=== PATIENT | female | born 1985 | race Caucasian/White ===

== ENCOUNTER → 2016-07-14 | Outpatient (CLI) | payer OTHER ==
[~2016-07-14] MED LIST: HYDR-757 PO; KETO10TA PO; LEVO500T2 PO; PHEN-640 PO; TAMS0.4C98 PO
--- OUTSIDE RECORDS SUMMARY | 2016-07-14 15:42 | XMS REPORT | Continuity of Care Document ---
Author Author [facility] Organization [facility] Address Unknown Phone Unavailable Allergies Medications Problems Date Dx Coded Attending Type Code Diagnosis Diagnosed By 07/14/2016 JOSLYN SUNSHINE Ot 610.0 SOLITARY CYST OF BREAST 07/14/2016 JOSLYN SUNSHINE Ot 610.0 SOLITARY CYST OF BREAST Procedures Results Encounters ACCT No. Visit Date/Time Discharge Status Pt. Type Provider Facility Loc./Unit Complaint [id number] 12/25/2013 07:37:00 2013 23:59:59 CLS Outpatient JOSLYN SUNSHINE [facility] RAD LEFT BREAST LUMP [id number] 10/12/2012 10:13:00 2012 23:59:59 CLS Outpatient [id number] 07/14/2016 15:39:00 ACT Outpatient CARI KELLY, ELVIA Coleman [facility] RAD ABD PAIN,BACK PAIN
--- NOTE | 2016-07-14 16:09 | Diagnostic Imaging Report ---
PROCEDURE: CT urinary tract, rule out kidney stone. TECHNIQUE: Multiple contiguous axial images were obtained through the abdomen and pelvis without the use of intravenous contrast. INDICATION: Bilateral lower back pain with hematuria. COMPARISON: There are no prior studies available for comparison. FINDINGS: Image 142/169 through the low pelvis does show a small 2 x 4 mm calculus at the uterovesical junction on the left. The left ureter proximal to the calculus is slightly dilated as is the left renal pelvis. Consequently, I do suspect that there is partial obstruction of the left collecting system due to the aforementioned calculus. There is no sign of nephrolithiasis, and the right kidney is not obstructed. The urinary bladder is only partially filled and consequently difficult to assess. There is no obvious bladder abnormality evident. There is a kokmk-pm-rvzasuyz amount of free fluid within the pelvis. This is nonspecific. There is no solid pelvic mass or abscess visualized. The uterus is unremarkable. The appendix was visualized and is not abnormally thickened. There is no distortion of the periappendiceal fat to suggest acute appendicitis. The liver, spleen, pancreas, adrenals, gallbladder, aorta, and inferior vena cava are unremarkable for an acute abnormality. The stomach is partially filled with fluid and consequently difficult to assess. The lung bases are clear. The bone windows show no evidence for a fracture or for a destructive lesion. IMPRESSION: 1. There is partial obstruction of the left collecting system due to a 2 x 4 mm calculus at the ureterovesical junction. 2. There is a moderate amount of free fluid in the pelvis. This finding is nonspecific. 3. There is no acute abnormality of the abdomen or pelvis noted otherwise. 4. These results will be called to Dr. Neal Marin. Dictated by: Dictated on workstation # [id number]
== END ==
LOC: RAD 15:39
PROVIDERS: ATTEND Internal Medicine
DX: N20.1 Calculus of ureter (principal)
CPT/HCPCS: 74176

== ENCOUNTER → 2016-07-16 | Outpatient (CLI) | payer OTHER ==
--- OUTSIDE RECORDS SUMMARY | 2016-07-16 12:28 | XMS REPORT | Continuity of Care Document ---
Author Author [facility] Organization [facility] Address Unknown Phone Unavailable Allergies Medications Problems Date Dx Coded Attending Type Code Diagnosis Diagnosed By 07/14/2016 JOSLYN SUNSHINE Ot 610.0 SOLITARY CYST OF BREAST 07/14/2016 JOSLYN SUNSHINE Ot 610.0 SOLITARY CYST OF BREAST Procedures Results Encounters ACCT No. Visit Date/Time Discharge Status Pt. Type Provider Facility Loc./Unit Complaint [id number] 12/25/2013 07:37:00 2013 23:59:59 CLS Outpatient JOSLYN SUNSHINE [facility] RAD LEFT BREAST LUMP [id number] 10/12/2012 10:13:00 2012 23:59:59 CLS Outpatient [id number] 07/14/2016 15:39:00 ACT Outpatient CARI KELLY, ELVIA Coleman [facility] RAD ABD PAIN,BACK PAIN
--- NOTE | 2016-07-16 17:13 | Diagnostic Imaging Report ---
EXAMINATION: Abdomen at 12:49 p.m. INDICATION: Hematuria. FINDINGS: The previous CT abdomen/pelvis exam performed on 07/14/2016 noted a 2 x 4 mm calculus at the ureterovesical junction on the left. That calculus is again evident and does not appear to have changed significantly in position. There is no other pathological calcification evident. There is no mass or organomegaly noted. There is gas in both the large and small bowel in a nonspecific fashion. There is no sign of a bowel obstruction. The osseous structures are intact. IMPRESSION: 1. The obstructive calculus in the distal left ureter seen on the recent CT abdomen/pelvis exam is again visualized. The calculus still appears to be at the ureterovesical junction on the left. 2. There is no acute abnormality of the abdomen or pelvis. Dictated by: Dictated on workstation # [id number]
== END ==
LOC: RAD 12:24
PROVIDERS: ATTEND Urology
DX: N20.1 Calculus of ureter (principal)
CPT/HCPCS: 74000

== ENCOUNTER 2016-07-17 10:30 | Outpatient (CLI) | payer OTHER ==
--- OUTSIDE RECORDS SUMMARY | 2016-07-16 14:57 | XMS REPORT | Continuity of Care Document ---
Author Author [facility] Organization [facility] Address Unknown Phone Unavailable Allergies Medications Problems Date Dx Coded Attending Type Code Diagnosis Diagnosed By 07/14/2016 JOSLYN SUNSHINE Ot 610.0 SOLITARY CYST OF BREAST 07/14/2016 JOSLYN SUNSHINE Ot 610.0 SOLITARY CYST OF BREAST 07/16/2016 JOSLYN SUNSHINE Ot 610.0 SOLITARY CYST OF BREAST 07/16/2016 ELVIA ALCALA MD Ot N20.1 CALCULUS OF URETER Procedures Results Encounters ACCT No. Visit Date/Time Discharge Status Pt. Type Provider Facility Loc./Unit Complaint [id number] 12/25/2013 07:37:00 2013 23:59:59 CLS Outpatient JOSLYN SUNSHINE [facility] RAD LEFT BREAST LUMP [id number] 10/12/2012 10:13:00 2012 23:59:59 CLS Outpatient [id number] 07/16/2016 12:24:00 ACT Outpatient JOSE ANGEL WEEKS MD [facility] RAD LT URETERAL STONE [id number] 07/14/2016 15:39:00 ACT Outpatient ELVIA ALCALA MD [facility] RAD ABD PAIN,BACK PAIN
[~2016-07-17] VITALS: Ht 172.7 cm; Wt 81.6 kg
--- OUTSIDE RECORDS SUMMARY | 2016-07-17 10:36 | XMS REPORT | Continuity of Care Document ---
Author Author [facility] Organization [facility] Address Unknown Phone Unavailable Allergies Medications Problems Date Dx Coded Attending Type Code Diagnosis Diagnosed By 07/14/2016 JOSLYN SUNSHINE Ot 610.0 SOLITARY CYST OF BREAST 07/14/2016 JOSLYN SUNSHINE Ot 610.0 SOLITARY CYST OF BREAST 07/16/2016 JOSLYN SUNSHINE Ot 610.0 SOLITARY CYST OF BREAST 07/16/2016 CARI KELLY, ELVIA Coleman Ot N20.1 CALCULUS OF URETER 07/16/2016 JOSE ANGEL WEEKS MD Ot N20.1 CALCULUS OF URETER Procedures Results Encounters ACCT No. Visit Date/Time Discharge Status Pt. Type Provider Facility Loc./Unit Complaint [id number] 12/25/2013 07:37:00 2013 23:59:59 CLS Outpatient JOSLYN SUNSHINE [facility] RAD LEFT BREAST LUMP [id number] 10/12/2012 10:13:00 2012 23:59:59 CLS Outpatient [id number] 07/21/2016 09:00:00 PEN Preadmit JOSE ANGEL WEEKS MD [facility] SDC LEFT STONE [id number] 07/16/2016 14:54:00 ACT Outpatient JOSE ANGEL WEEKS MD [facility] PREOP ESWL [id number] 07/16/2016 12:24:00 ACT Outpatient JOSE ANGEL WEEKS MD [facility] RAD LT URETERAL STONE [id number] 07/14/2016 15:39:00 ACT Outpatient ELVIA ALCALA MD [facility] RAD ABD PAIN,BACK PAIN
[2016-07-17] MEDS ORDERED: TAMS0.4C98 PO (18:06)
[2016-07-17] MEDS ORDERED: HYDR-757 PO (18:06)
[2016-07-17] MEDS ORDERED: KETO10TA PO (18:06)
[2016-07-17] MEDS ORDERED: LEVO500T2 PO (18:29)
== END 2016-07-17 10:38 ==
LOC: PREOP 10:30
PROVIDERS: ATTEND Urology
DX: Z01.818 Encounter for other preprocedural examination (principal); N20.1 Calculus of ureter

== ENCOUNTER 2016-07-17 15:35 | Emergency (ER) | payer OTHER ==
[~2016-07-17] VITALS: Ht 172.7 cm; Wt 81.6 kg
--- OUTSIDE RECORDS SUMMARY | 2016-07-17 15:43 | XMS REPORT | Continuity of Care Document ---
Author Author [facility] Organization [facility] Address Unknown Phone Unavailable Allergies Active Description Code Type Severity Reaction Onset Reported/Identified Relationship to Patient Clinical Status Yes No Known Drug Allergies [id number] Drug Allergy Unknown N/ A 07/17/2016 Medications Problems Date Dx Coded Attending Type Code Diagnosis Diagnosed By 07/14/2016 JOSLYN SUNSHINE Ot 610.0 SOLITARY CYST OF BREAST 07/14/2016 JOSLYN SUNSHINE Ot 610.0 SOLITARY CYST OF BREAST 07/16/2016 JOSLYN SUNSHINE Ot 610.0 SOLITARY CYST OF BREAST 07/16/2016 CARI KELLY, ELVIA Coleman Ot N20.1 CALCULUS OF URETER 07/16/2016 JOSE ANGEL WEEKS MD Ot N20.1 CALCULUS OF URETER 07/17/2016 JOSE ANGEL WEEKS MD Ot N20.1 CALCULUS OF URETER 07/17/2016 JOSE ANGEL WEEKS MD Ot N20.1 CALCULUS OF URETER 07/17/2016 JOSE ANGEL WEEKS MD Ot Z01.818 ENCOUNTER FOR OTHER PREPROCEDURAL EXAMIN Procedures Results Encounters ACCT No. Visit Date/Time Discharge Status Pt. Type Provider Facility Loc./Unit Complaint [id number] 07/17/2016 10:30:00 2016 10:38:00 DIS Outpatient JOSE ANGEL WEEKS MD [facility] PREOP ESWL [id number] 12/25/2013 07:37:00 2013 23:59:59 CLS Outpatient JOSLYN SUNSHINE [facility] RAD LEFT BREAST LUMP [id number] 10/12/2012 10:13:00 2012 23:59:59 CLS Outpatient [id number] 07/21/2016 09:00:00 PEN Preadmit JOSE ANGEL WEEKS MD [facility] SDC LEFT STONE [id number] 07/17/2016 15:36:00 ACT Emergency LINDA KELLY, MAZIN Coleman [facility] ER KIDNEY STONE [id number] 07/16/2016 12:24:00 ACT Outpatient MICKY KELLY, JOSE ANGEL Fisher [facility] RAD LT URETERAL STONE [id number] 07/14/2016 15:39:00 ACT Outpatient CARI KELLY, ELVIA Coleman [facility] RAD ABD PAIN,BACK PAIN
[2016-07-17] MEDS ORDERED: KETOROLAC 30 MG/ML VIAL IVP ONE (15:45)
--- NOTE | 2016-07-17 16:56 | ED GU-Female ---
General Chief Complaint: Abdominal/GI Problems Stated Complaint: KIDNEY STONE Nursing Triage Note: c/o left flank pain secondary to renal calculi. Pt is scheduled for lithotripsy on . Nursing Sepsis Screen: No Definite Risk Source: patient Exam Limitations: no limitations History of Present Illness Time seen by provider: 16:54 Initial Comments To ER with complaints of left suprapubic pain. She was diagnosed with a stone at the left ureterovesicular junction on Wednesday of this week (today being Wednesday). She is scheduled for lithotripsy with Dr. Weeks on Wednesday of next week. She presents here due to uncontrollable pain. No fevers or chills. She does report a sensation of needing to urinate frequently though she is unable to. Timing/Duration: just prior to arrival Severity/Quality: moderate Radiation: none Activities at Onset: none Prior Genitourinary Problems: none Associated Symptoms: urinary frequency Allergies and Home Medications Allergies Coded Allergies: No Known Drug Allergies (Unverified , 07/17/16) Home Medications Hydrocodone/Acetaminophen 1 Each Tablet #14 1 EACH PO Q4H PRN PRN PAIN Prescribed by: NAZANIN GUAJARDO on 07/17/161805 Ketorolac Tromethamine 10 Mg Tablet #15 10 MG PO Q6H PRN PRN PAIN Prescribed by: NAZANIN GUAJARDO on 07/17/161805 Tamsulosin HCl 0.4 Mg Cap #10 0.4 MG PO DAILY Prescribed by: NAZANIN GUAJARDO on 07/17/161805 Constitutional: see HPINo chills, No fever EENTM: see HPI Respiratory: no symptoms reported Cardiovascular: no symptoms reported Genitourinary: no symptoms reported Musculoskeletal: no symptoms reported Skin: no symptoms reported Psychiatric/Neurological: No Symptoms Reported Endocrine: No Symptoms Reported Past Rucpwnd-Uhxign-Xvjsss Hx Patient Social History Recent Foreign Travel: No Contact w/Someone Who Travel: No Recent Infectious Disease Expo: No Recent Hopitalizations: No Seasonal Allergies Seasonal Allergies: Yes (MILD) Surgeries HX Surgeries: Yes (WISDOM TEETH, CYST FROM WRIST, SEPTOPLASTY) Respiratory Hx Respiratory Disorders: No Cardiovascular Hx Cardiac Disorders: No Neurological Hx Neurological Disorders: No Reproductive System : No Hx Reproductive Disorders: No Sexually Transmitted Disease: No HIV/AIDS: No Female Reproductive Disorders: Denies Genitourinary Hx Genitourinary Disorders: Yes Genitourinary Disorders: Kidney Stones Gastrointestinal Hx Gastrointestinal Disorders: No Musculoskeletal Hx Musculoskeletal Disorders: No Endocrine Hx Endocrine Disorders: No HEENT HX ENT Disorders: No Loss of Vision: Denies Hearing Impairment: Denies Cancer Hx Cancer: No Psychosocial Hx Psychiatric Problems: No Integumentary HX Skin/Integumentary Disorder: No Blood Transfusions Hx Blood Disorders: No Adverse Reaction to a Blood Tr: No (N/A) Physical Exam Vital Signs Vital Sign - Last 12Hours 07/17/16 17:06 Temp 98.4 Capillary Refill : Less Than 3 Seconds General Appearance: WD/WN no apparent distress HEENT: PERRL/EOMI normal ENT inspection Neck: non-tender full range of motion Respiratory: no respiratory distress no accessory muscle use Gastrointestinal: non tender soft Extremities: normal range of motion non-tender Neurologic/Psychiatric: alert normal mood/affect oriented x 3 Skin: normal color warm/dry Progress/Results/Core Measures Results/Orders Lab Results Laboratory Tests Test 07/17/16 16:49 07/17/16 18:00 Range/Units Anion Gap 8 5-14 MMOL/L BUN/Creatinine Ratio 15 Band Neutrophils 4 % Basophils # (Auto) 0.0 0.0-0.1 10^3/uL Basophils (%) (Auto) 0 0-10 % Blood Morphology Comment NORMAL Blood Urea Nitrogen 18 7-18 MG/DL Calcium Level 9.6 8.5-10.1 MG/DL Carbon Dioxide Level 21 21-32 MMOL/L Chloride Level 105 98-107 MMOL/L Creatinine 1.19 0.60-1.30 MG/DL Eosinophils # (Auto) 0.1 0.0-0.3 10^3/uL Eosinophils % (Manual) 1 % Eosinophils (%) (Auto) 1 0-10 % Estimat Glomerular Filtration Rate 54 Glucose Level 90 70-105 MG/DL Hematocrit 39 35-52 % Hemoglobin 13.7 11.5-16.0 G/DL Lymphocytes # (Auto) 2.9 1.0-4.0 X 10^3 Lymphocytes % (Manual) 15 % Lymphocytes (%) (Auto) 20 12-44 % Mean Corpuscular Hemoglobin 29 25-34 PG Mean Corpuscular Hemoglobin Concent 35 32-36 G/DL Mean Corpuscular Volume 82 80-99 FL Mean Platelet Volume 10.3 7.4-10.4 FL Monocytes # (Auto) 1.3 H 0.0-1.0 X 10^3 Monocytes % (Manual) 4 % Monocytes (%) (Auto) 8 0-12 % Neutrophils # (Auto) 10.7 H 1.8-7.8 X 10^3 Neutrophils % (Manual) 76 % Neutrophils (%) (Auto) 71 42-75 % Platelet Count 301 130-400 10^3/uL Potassium Level 3.9 3.6-5.0 MMOL/L Red Blood Count 4.78 4.35-5.85 10^6/uL Red Cell Distribution Width 12.4 10.0-14.5 % Sodium Level 134 L 135-145 MMOL/L Toxic Granulation 1+ White Blood Count 15.0 H 4.3-11.0 10^3/uL Urine Bacteria MODERATE H /HPF Urine Bilirubin NEGATIVE NEGATIVE Urine Casts NONE /LPF Urine Clarity CLEAR Urine Color YELLOW Urine Crystals NONE /LPF Urine Culture Indicated YES Urine Glucose (UA) NEGATIVE NEGATIVE Urine Ketones NEGATIVE NEGATIVE Urine Leukocyte Esterase 1+ H NEGATIVE Urine Mucus NEGATIVE /LPF Urine Nitrite NEGATIVE NEGATIVE Urine Protein 2+ H NEGATIVE Urine RBC RARE /HPF Urine RBC (Auto) 5+ H NEGATIVE Urine Specific [place] 1.025 H 1.016-1.022 Urine Squamous Epithelial Cells 2-5 /HPF Urine Urobilinogen NORMAL NORMAL MG/DL Urine WBC 5-10 H /HPF Urine pH 5 5-9 My Orders Orders-NAZANIN GUAJARDO APRN Ua Culture If Indicated (07/17/16 15:40) Ketorolac Injection (Toradol Injection) (07/17/16 15:45) Fentanyl Injection (Sublimaze Injection (07/17/16 17:00) Ns Iv 1000 Ml (Sodium Chloride 0.9%) (07/17/16 17:30) Urine Bedside (07/17/16 18:03) Urine Culture (07/17/16 18:00) Medications Given in ED Current Medications Medications Dose Ordered Sig/Cynthia Route Start Time Stop Time Status Last Admin Dose Admin Fentanyl Citrate 50 mcg ONCE ONCE IVP 07/17/16 17:00 07/17/16 17:01 DC 07/17/16 17:03 50 MCG Ketorolac Tromethamine 30 mg ONCE ONCE IVP 07/17/16 15:45 07/17/16 15:46 DC 07/17/16 17:06 30 MG Vital Signs/I&O Vital Sign - Last 12Hours 07/17/16 07/17/16 16:50 17:06 Temp 98.4 B/P Departure Communication Progress Notes 1804-pain much improved and in fact nearly gone after 30 mg of Toradol, 1 L of saline, 50 g a football. Her only pain medication at home was ultram, we will start Toradol. Impression Impression: Primary Impression: Left ureteral stone Disposition: HOME, SELF-CARE Condition: Stable Departure-Patient Inst. Decision time for Depature: 18:04 Referrals: JOSE ANGEL WEEKS MD, JOHN D MD (PCP/Family) Primary Care Physician Patient Instructions: Kidney Stones in Adults Add. Discharge Instructions: 1. Return to ER for any concerns 2. Follow-up with Dr. Weeks as scheduled 3. Return to ER for any fevers or intolerable pain 4. Do not mix the current pain medication (tramadol) with the new pain medications. All discharge instructions reviewed with patient and/or family. Voiced understanding. Scripts Levofloxacin (Levaquin)500 Mg Plktzx650 Mg PO DAILY #3 TAB Prov:NAZANIN GUAJARDO [employer]ED INTEREST DEALER 07/17/16 Tamsulosin HCl (Flomax)0.4 Mg Cap0.4 Mg PO DAILY #10 CAP Prov:NAZAINN GUAJARDO [employer]ED INTEREST DEALER 07/17/16 Ketorolac Tromethamine 10 Mg Ayiado45 Mg PO Q6H PRN PAIN #15 TAB Prov:NAZANIN GUAJARDO APRN 07/17/16 Hydrocodone/Acetaminophen ([place] 5-325 Tablet)1 Each Tablet1 Each PO Q4H PRN PAIN #14 TAB Prov:NAZANIN GUAJARDO [employer]ED INTEREST DEALER 07/17/16 NAZANIN GUAJARDO APRN Jul 17, 2016 16:56
[2016-07-17 16:57] LABS: BASOPHILS % (AUTO) 0 % (0-10); EOSINOPHILS # (AUTO) 0.1 10^3/uL (0.0-0.3); EOSINOPHILS % (AUTO) 1 % (0-10); LYMPHOCYTES # (AUTO) 2.9 X 10^3 (1.0-4.0); LYMPHOCYTES % (AUTO) 20 % (12-44); MEAN CORPUSCULAR HEMOGLOBIN 29 PG (25-34); MEAN CORPUSCULAR HGB CONC 35 G/DL (32-36); MEAN CORPUSCULAR VOLUME 82 FL (80-99); MEAN PLATELET VOLUME 10.3 FL (7.4-10.4); MONOCYTES # (AUTO) 1.3 X 10^3 (0.0-1.0); MONOCYTES % (AUTO) 8 % (0-12); NEUTROPHILS # (AUTO) 10.7 X 10^3 (1.8-7.8); NEUTROPHILS % (AUTO) 71 % (42-75); PLATELET COUNT 301 10^3/uL (130-400); RED BLOOD COUNT 4.78 10^6/uL (4.35-5.85); RED CELL DISTRIBUTION WIDTH 12.4 % (10.0-14.5)
[2016-07-17] MEDS ORDERED: fentaNYL INJECTION 100 MCG/2 ML AMP IVP ONE ×2 (17:00→18:45)
[2016-07-17 17:12] LABS: BAND NEUTROPHILS 4 %; EOSINOPHILS % (MANUAL) 1 %; LYMPHOCYTES % (MANUAL) 15 %; NEUTROPHILS % (MANUAL) 76 %
[2016-07-17 17:14] LABS: CALCIUM 9.6 MG/DL (8.5-10.1); CREATININE SERUM 1.19 MG/DL (0.60-1.30); POTASSIUM 3.9 MMOL/L (3.6-5.0)
[2016-07-17] MEDS ORDERED: NS IV 1000 ML 1,000 ML IV SCH (17:30)
[2016-07-17] MEDS ORDERED: KETO10TA PO (18:06)
[2016-07-17] MEDS ORDERED: TAMS0.4C98 PO (18:06)
[2016-07-17] MEDS ORDERED: HYDR-757 PO (18:06)
[2016-07-17 18:08] LABS: BILIRUBIN,URINE NEGATIVE (NEGATIVE); KETONES,URINE NEGATIVE (NEGATIVE); LEUKOCYTE ESTERASE ,URINE 1+ (NEGATIVE); NITRITE,URINE NEGATIVE (NEGATIVE); PH,URINE 5 (5-9); PROTEIN,URINE 2+ (NEGATIVE); UROBILINOGEN,URINE NORMAL (NORMAL)
[2016-07-17] MEDS ORDERED: LEVO500T2 PO (18:29)
[2016-07-17] MEDS ORDERED: LEVOFLOXACIN 500 MG TAB (LEVAQUIN) PO ONE (18:30)
[2016-07-17] MEDS ORDERED: morphine INJ 10 MG/ML 1ML (SYR OR VIAL) IVP ONE ×2 (19:00→19:15)
[2016-07-17 19:25] VITALS: BP 134/90
== END 2016-07-17 19:25 | disposition home or self-care (01) ==
LOC: EDUNIT# 15:35 → ER 15:36
DX: N20.1 Calculus of ureter (principal)
CPT/HCPCS: 36415; 80048; 81000; 84703; 85007; 85027; 87077; 87088; 87186; 96361; 96374; 96375; 96376; 99281

== ENCOUNTER 2016-07-21 06:05 | Day surgery (SDC) | payer OTHER ==
[~2016-07-21] VITALS: Ht 172.7 cm; Wt 81.6 kg
[~2016-07-21 06:05] MED LIST changes: -PHEN-640 PO
--- OUTSIDE RECORDS SUMMARY | 2016-07-21 06:08 | XMS REPORT | Continuity of Care Document ---
Author Author [facility] Organization [facility] Address Unknown Phone Unavailable Allergies Active Description Code Type Severity Reaction Onset Reported/Identified Relationship to Patient Clinical Status Yes No Known Drug Allergies [id number] Drug Allergy Unknown N/ A 07/17/2016 Medications Problems Date Dx Coded Attending Type Code Diagnosis Diagnosed By 07/14/2016 JOSLYN SUNSHINE TABLET TESTER Ot 610.0 SOLITARY CYST OF BREAST 07/14/2016 JSOLYN SUNSHINE TABLET TESTER Ot 610.0 SOLITARY CYST OF BREAST 07/16/2016 JOSLYN SUNSHINE TABLET TESTER Ot 610.0 SOLITARY CYST OF BREAST 07/16/2016 CARI KELLY, ELVIA Coleman Ot N20.1 CALCULUS OF URETER 07/16/2016 JOSE ANGEL WEEKS MD Ot N20.1 CALCULUS OF URETER 07/17/2016 JOSE ANGEL WEEKS MD Ot N20.1 CALCULUS OF URETER 07/17/2016 JOSE ANGEL WEEKS MD Ot N20.1 CALCULUS OF URETER 07/17/2016 MICKY KELLY, JOSE ANGEL Fisher Ot Z01.818 ENCOUNTER FOR OTHER PREPROCEDURAL EXAMIN 07/17/2016 NAZANIN GUAJARDO APRN Ot N20.1 CALCULUS OF URETER 07/20/2016 NAZANIN GUAJARDO APRN Ot N20.1 CALCULUS OF URETER Procedures Results Test Result Range Complete blood count (CBC) with automated white blood cell (WBC) differential - 07/17/16 16:49 Blood leukocytes automated count (number/volume) 15.0 10*3/ uL 4.3-11.0 Blood erythrocytes automated count (number/volume) 4.78 10*6 /uL 4.35-5.85 Venous blood hemoglobin measurement (mass/volume) 13.7 g/dL 11.5-16.0 Blood hematocrit (volume fraction) 39 % 35-52 Automated erythrocyte mean corpuscular volume 82 [foz_us] 80-99 Automated erythrocyte mean corpuscular hemoglobin (mass per erythrocyte) 29 pg 25-34 Automated erythrocyte mean corpuscular hemoglobin concentration measurement ( mass/volume) 35 g/dL 32-36 Automated erythrocyte distribution width ratio 12.4 % 10.0-14.5 Automated blood platelet count (count/volume) 301 10*3/uL 130-400 Automated blood platelet mean volume measurement 10.3 [foz_ us] 7.4-10.4 Automated blood neutrophils/100 leukocytes 71 % 42-75 Automated blood lymphocytes/100 leukocytes 20 % 12-44 Blood monocytes/100 leukocytes 8 % 0-12 Automated blood eosinophils/100 leukocytes 1 % 0-10 Automated blood basophils/100 leukocytes 0 % 0-10 Blood neutrophils automated count (number/volume) 10.7 10*3 1.8-7.8 Blood lymphocytes automated count (number/volume) 2.9 10*3 1.0-4.0 Blood monocytes automated count (number/volume) 1.3 10*3 0.0-1.0 Automated eosinophil count 0.1 10*3/uL 0.0-0.3 Automated blood basophil count (count/volume) 0.0 10*3/uL 0.0-0.1 Blood manual differential performed detection - 07/17/16 16:49 Blood monocytes/100 leukocytes 4 % NRG Manual blood segmented neutrophils/100 leukocytes 76 % NRG Blood band neutrophils/100 leukocytes 4 % NRG Manual blood lymphocytes/100 leukocytes 15 % NRG Manual eosinophils/100 leukocytes in nose 1 % NRG Blood erythrocyte morphology finding identification NORMAL NRG Blood toxic granules detection by light microscopy 1+ NRG Whole blood basic metabolic panel - 07/17/16 16:49 Serum or plasma sodium measurement (moles/volume) 134 mmol/ L 135-145 Serum or plasma potassium measurement (moles/volume) 3.9 mmol/L 3.6-5.0 Serum or plasma chloride measurement (moles/volume) 105 mmol /L 98-107 Carbon dioxide 21 mmol/L 21-32 Serum or plasma anion gap determination (moles/volume) 8 mmol/L 5-14 Serum or plasma urea nitrogen measurement (mass/volume) 18 mg/dL 7-18 Serum or plasma creatinine measurement (mass/volume) 1.19 mg /dL 0.60-1.30 Serum or plasma urea nitrogen/creatinine mass ratio 15 NRG Serum or plasma creatinine measurement with calculation of estimated glomerular filtration rate 54 NRG Serum or plasma glucose measurement (mass/volume) 90 mg/dL 70-105 Serum or plasma calcium measurement (mass/volume) 9.6 mg/dL 8.5-10.1 Complete urinalysis with reflex to culture - 07/17/16 18:00 Urine color determination YELLOW NRG Urine clarity determination CLEAR NRG Urine pH measurement by test strip 5 5- 9 Specific gravity of urine by test strip 1.025 1.016-1.022 Urine protein assay by test strip, semi-quantitative 2+ NEGATIVE Urine glucose detection by automated test strip NEGATIVE NEGATIVE Erythrocytes detection in urine sediment by light microscopy 5+ NEGATIVE Urine ketones detection by automated test strip NEGATIVE NEGATIVE Urine nitrite detection by test strip NEGATIVE NEGATIVE Urine total bilirubin detection by test strip NEGATIVE NEGATIVE Urine urobilinogen measurement by automated test strip (mass/volume) NORMAL NORMAL Urine leukocyte esterase detection by dipstick 1+ NEGATIVE Automated urine sediment erythrocyte count by microscopy (number/high power field) RARE NRG Automated urine sediment leukocyte count by microscopy (number/high power field ) [HPF] NRG Bacteria detection in urine sediment by light microscopy MODERATE NRG Squamous epithelial cells detection in urine sediment by light microscopy 2-5 NRG Crystals detection in urine sediment by light microscopy NONE NRG Casts detection in urine sediment by light microscopy NONE NRG Mucus detection in urine sediment by light microscopy NEGATIVE NRG Complete urinalysis with reflex to culture YES NRG Bacterial urine culture - 07/17/16 18:00 Bacterial urine culture [id number] NRG COLONY COUNT 10,000/ML - 100,000/ML NRG FTX;REPORTABLE SENSITIVITY REPORTED AT 1116, 3-12-17 NRG URINE CULTURE RESULTS PLUS NRG Bacterial susceptibility panel - 07/17/16 18:00 Gentamicin susceptibility test by minimum inhibitory concentration S NRG Vancomycin susceptibility test by minimum inhibitory concentration 2 NRG Levofloxacin susceptibility test by minimum inhibitory concentration 0.5 NRG Tetracycline susceptibility test by minimum inhibitory concentration >= NRG Ampicillin susceptibility test by minimum inhibitory concentration <= NRG Nitrofurantoin susceptibility test by minimum inhibitory concentration <= NRG Linezolid susceptibility test by minimum inhibitory concentration 2 NRG Encounters ACCT No. Visit Date/Time Discharge Status Pt. Type Provider Facility Loc./Unit Complaint [id number] 07/17/2016 15:36:00 2016 19:25:00 DIS Emergency NAZANIN GUAJARDO APRN [facility] ER KIDNEY STONE [id number] 07/17/2016 10:30:00 2016 10:38:00 DIS Outpatient JOSE ANGEL WEEKS MD [facility] PREOP ESWL [id number] 12/25/2013 07:37:00 2013 23:59:59 CLS Outpatient JONG JOSLYNShawna CROWLEY [facility] RAD LEFT BREAST LUMP [id number] 10/12/2012 10:13:00 2012 23:59:59 CLS Outpatient [id number] 07/21/2016 06:05:00 ACT Outpatient JOSE ANGEL WEEKS MD [facility] SDC LEFT STONE [id number] 07/16/2016 12:24:00 ACT Outpatient JOSE ANGEL WEEKS MD [facility] RAD LT URETERAL STONE [id number] 07/14/2016 15:39:00 ACT Outpatient CARI KELLY, ELVIA Coleman [facility] RAD ABD PAIN,BACK PAIN
--- OUTSIDE RECORDS SUMMARY | 2016-07-21 06:09 | XMS REPORT | Continuity of Care Document ---
Author Author [facility] Organization [facility] Address Unknown Phone Unavailable Allergies Active Description Code Type Severity Reaction Onset Reported/Identified Relationship to Patient Clinical Status Yes No Known Drug Allergies [id number] Drug Allergy Unknown N/ A 07/17/2016 Medications Problems Date Dx Coded Attending Type Code Diagnosis Diagnosed By 07/14/2016 JOSLYN SUNSHINE RETAIL SUPPORT MANAGER Ot 610.0 SOLITARY CYST OF BREAST 07/14/2016 JOSLYN SUNSHINE RETAIL SUPPORT MANAGER Ot 610.0 SOLITARY CYST OF BREAST 07/16/2016 JOSLYN SUNSHINE RETAIL SUPPORT MANAGER Ot 610.0 SOLITARY CYST OF BREAST 07/16/2016 [...] culture - 07/17/16 18:00 Bacterial urine culture [id number] NRG COLONY COUNT 10,000/ML - 100,000/ML NRG [...] Status Pt. Type Provider Facility Loc./Unit Complaint [id number] 07/17/2016 15:36:00 2016 19:25:00 DIS Emergency NAZANIN GUAJARDO APRN [facility] ER KIDNEY STONE [id number] 07/17/2016 10:30:00 2016 10:38:00 DIS Outpatient JOSE ANGEL WEEKS MD [facility] PREOP ESWL [id number] 12/25/2013 07:37:00 2013 23:59:59 CLS Outpatient JONG JOSLYNShawna CROWLEY [facility] RAD LEFT BREAST LUMP [id number] 10/12/2012 10:13:00 2012 23:59:59 CLS Outpatient [id number] 07/21/2016 06:05:00 ACT Outpatient JOSEA NGEL WEEKS MD [facility] SDC LEFT STONE [id number] 07/16/2016 12:24:00 ACT Outpatient JOSE ANGEL WEEKS MD [facility] RAD LT URETERAL STONE [id number] 07/14/2016 15:39:00 ACT Outpatient CARI KELLY, ELVIA Coleman [facility] RAD ABD PAIN,BACK PAIN
[2016-07-21] MEDS: LACTATED RINGERS 1,000 ML IV PRN ×2 (06:30→07:51)
[2016-07-21] MEDS ORDERED: LEVOFLOXACIN 250 MG/50 ML IVPB 50 ML ONE (06:31)
[2016-07-21] MEDS ORDERED: CATHETER FLUSH 10 ML SYR IV PRN (06:45)
[2016-07-21] MEDS ORDERED: LEVOFLOXACIN 250 MG/D5W 50 ML (PRE-MIX) IV ONE (06:45)
[2016-07-21 06:55] VITALS: BP 144/90
[2016-07-21] MEDS ORDERED: proPOfol 200 MG/20 ML (DIPRIVAN) VIAL IV ONE (07:06)
[2016-07-21] MEDS ORDERED: DEXAMETHASONE PF 10 MG/ML (DECADRON) VIAL ONE (07:06)
[2016-07-21] MEDS ORDERED: fentaNYL INJECTION 100 MCG/2 ML AMP ONE (07:06)
[2016-07-21] MEDS ORDERED: ONDANSETRON 4 MG/2 ML (SDV) Z0FRAN ONE (07:06)
[2016-07-21] MEDS ORDERED: SEVOFLURANE (ULTANE) 15 ML INHAL SOLN ONE (07:06)
[2016-07-21] MEDS ORDERED: LIDOCAINE PF 2% 10 ML (XYLOCAINE) AMP ONE (07:06)
[2016-07-21] MEDS ORDERED: MIDAZOLAM 2 MG/2 ML (VERSED) VIAL ONE (07:06)
[2016-07-21 07:16] LABS: PHOSPHORUS 2.8 MG/DL (2.3-4.7); URIC ACID 3.1 MG/DL (2.6-7.2)
--- NOTE | 2016-07-21 07:16 | Progress Note-Pre Operative ---
Pre-Operative Progress Note H&P Reviewed The H&P was reviewed, patient examined and no changes noted. Date H&P Reviewed: Jul 21, 2016 Time H&P Reviewed: 07:15 Pre-Operative Diagnosis: LT DISTAL URETERAL STONE JOSE ANGEL WEEKS MD Jul 21, 2016 7:16 am
--- NOTE | 2016-07-21 07:16 | Progress Note-Post Operative ---
Post-Operative Progess Note Pre-Operative Diagnosis LT DISTAL URETERAL STONE Post-Operative Diagnosis SAME Post-Op Procedure Note Date of Procedure: Jul 21, 2016 Name of Procedure: CYSTO, LT URETEROSCOPY WITH STONE LITHOTRIPSY AND RETROGRADE UROGRAM Anesthesia Type GENERAL JOSE ANGEL WEEKS MD Jul 21, 2016 7:16 am
--- NOTE | 2016-07-21 07:18 | Discharge Inst-Urology ---
Discharge Inst-Urology Discharge Medications New, Converted, or Re-newed RX: RX on Chart Patient Instructions/Follow Up Plan Please make appointment to been seen in office in 3 weeks. Increase oral fluids for 48 hours and then as needed. Diet and Activity as tolerated. If questions or concerns contact your physician Or seek help at emergency department. JOSE ANGEL WEEKS MD Jul 21, 2016 7:18 am
--- NOTE | 2016-07-21 07:20 | Diagnostic Imaging Report ---
INDICATION: Urinary tract calculi 2 views of the abdomen are obtained. Comparison is made to study of 07/16/2016. Bowel gas pattern is within normal limits. There is moderate stool throughout the colon. This does limit evaluation of the kidneys. There is no evidence of pathologic abdominal calcification. In particular, no calcification seen along the course of the urinary tracts. IMPRESSION: No pathologic abdominal calcification is identified. Dictated by: Dictated on workstation # [id number]
[2016-07-21] MEDS ORDERED: ROCURONIUM 50 MG/5 ML (ZEMURON) VIAL IV ONE (07:30)
[2016-07-21] MEDS ORDERED: KETOROLAC 30 MG/ML VIAL ONE (07:53)
[2016-07-21] MEDS ORDERED: NEOSTIGMINE (BLOXIVERZ ) 1 MG/1ML 10 ML VIAL ONE (07:53)
[2016-07-21] MEDS ORDERED: GLYCOPYRROLATE 0.2 MG/ML (ROBINUL) 2 ML VIAL ONE (07:53)
[2016-07-21] MEDS ORDERED: LACTATED RINGERS 1,000 ML IV ONE (08:11)
[2016-07-21] MEDS ORDERED: MEPERIDINE (DEMEROL) INJ 50 MG/ML IVP PRN (08:15)
[2016-07-21] MEDS ORDERED: ONDANSETRON 4 MG/2 ML (SDV) Z0FRAN IVP PRN (08:15)
[2016-07-21] MEDS ORDERED: morphine INJ 10 MG/ML 1ML (SYR OR VIAL) IVP PRN (08:15)
[2016-07-21 08:45] VITALS: BP 122/70
[2016-07-21] MEDS ORDERED: PHEN-640 PO (08:49)
[2016-07-21] MEDS ORDERED: PHENAZOPYRIDINE 100 MG (PYRIDIUM) TABLET ONE (09:14)
[2016-07-21 09:15] VITALS: BP 128/74
[2016-07-21] MEDS ORDERED: PHENAZOPYRIDINE 100 MG (PYRIDIUM) TABLET PO ONE (09:15)
[2016-07-21 09:30] VITALS: BP 128/74
--- NOTE | 2016-07-21 13:57 | OPERATIVE REPORT ---
PROCEDURE PHYSICIAN: JOSE ANGEL WEEKS DATE OF PROCEDURE: 07/21/2016 PREOPERATIVE DIAGNOSIS: Left distal ureteral stone. POSTOPERATIVE DIAGNOSIS: Left distal ureteral stone. OPERATION: Cystoscopy with left ureteroscopy and stone lithotripsy with retrograde urogram. SURGEON: Raven. ANESTHESIA: General. COMPLICATIONS: None. PROCEDURE: Under satisfactory general anesthesia, the patient in lithotomy position, the genitalia were prepped and draped in usual sterile fashion. Cystoscope was introduced under vision. The bladder looked normal. The wall normal and no bladder stone, bladder tumor or stone visualized. No cystitis. The ureteric orifice is normal in shape, site and configuration with clear efflux, sluggish on the left side. Using the Foroblique lens, I dilated the left ureteral orifice, intramural portion to accommodate a 6.9-Colombian semirigid ureteroscope. The stone was visualized and was broken with lithoclast into very small fragments that fell in- to the bladder. I removed the ureteroscope, inserted the cystoscope, passed a 6-Colombian urethral catheter to perform retrograde urogram and this was completely normal. No filling defect and complete emptying of the system with no more contrast residual and no extravasation. The bladder was evacuated and cystoscope was removed. The patient tolerated the procedure and anesthesia well and was sent to recovery room in stable condition. PLAN: See her back in 3 weeks at the office for stone prevention work-up. Job ID: [id number] Dictated Date: 07/21/2016 07:59:19 Supervisor Facepiece Line Date: 07/21/2016 13:51:48 / krish BRUNNER
[2016-07-22 07:22] LABS: CALCIUM PARA THYROID HORMONE 9.2 mg/dL (8.5-10.5)
== END 2016-07-21 09:30 | disposition home or self-care (01) ==
LOC: SDC 06:05
PROVIDERS: ATTEND Urology
DX: N20.1 Calculus of ureter (principal)
CPT/HCPCS: 36415; 74000; 83970; 84100; 84550; 84703; 87081

== ENCOUNTER 2017-01-02 02:31 | Emergency (ER) | payer OTHER ==
[~2017-01-02] VITALS: Ht 172.7 cm; Wt 83.9 kg
[~2017-01-02 02:31] MED LIST changes: +PHEN-640 PO
[2017-01-02 03:14] LABS: BASOPHILS % (AUTO) 0 % (0-10); EOSINOPHILS # (AUTO) 0.1 10^3/uL (0.0-0.3); EOSINOPHILS % (AUTO) 1 % (0-10); LYMPHOCYTES % (AUTO) 27 % (12-44); MEAN CORPUSCULAR HEMOGLOBIN 28 PG (25-34); MEAN CORPUSCULAR HGB CONC 34 G/DL (32-36); MEAN CORPUSCULAR VOLUME 83 FL (80-99); MEAN PLATELET VOLUME 10.7 FL (7.4-10.4); MONOCYTES # (AUTO) 0.8 X 10^3 (0.0-1.0); MONOCYTES % (AUTO) 7 % (0-12); NEUTROPHILS # (AUTO) 7.4 X 10^3 (1.8-7.8); NEUTROPHILS % (AUTO) 65 % (42-75); PLATELET COUNT 296 10^3/uL (130-400); RED BLOOD COUNT 4.51 10^6/uL (4.35-5.85); RED CELL DISTRIBUTION WIDTH 12.5 % (10.0-14.5); WHITE BLOOD COUNT 11.3 10^3/uL (4.3-11.0)
[2017-01-02] MEDS: FAMOTIDINE 20MG/2ML IV (PEPCID) IVP ONE (03:19)
[2017-01-02] MEDS: ONDANSETRON 4 MG/2 ML (SDV) Z0FRAN IVP ONE (03:20)
[2017-01-02 03:28] LABS: ALANINE AMINOTRANSFERASE 22 U/L (0-55); ALBUMIN 4.1 GM/DL (3.2-4.5); ANION GAP 9 MMOL/L (5-14); ASPARTATE AMINO TRANSFERASE 23 U/L (5-34); BILIRUBIN,TOTAL 0.2 MG/DL (0.1-1.0); BLOOD UREA NITROGEN 20 MG/DL (7-18); BUN/CREATININE RATIO 24; CALCIUM 9.1 MG/DL (8.5-10.1); CARBON DIOXIDE 23 MMOL/L (21-32); CHLORIDE 107 MMOL/L (98-107); CREATININE SERUM 0.83 MG/DL (0.60-1.30); GFR ESTIMATED > 60; GLUCOSE 101 MG/DL (70-105); LIPASE 14 U/L (8-78); POTASSIUM 3.9 MMOL/L (3.6-5.0); SODIUM 139 MMOL/L (135-145); TOTAL PROTEIN 6.7 GM/DL (6.4-8.2)
[2017-01-02 03:32] LABS: BILIRUBIN,URINE NEGATIVE (NEGATIVE); KETONES,URINE NEGATIVE (NEGATIVE); LEUKOCYTE ESTERASE ,URINE 2+ (NEGATIVE); NITRITE,URINE NEGATIVE (NEGATIVE); PH,URINE 6.5 (5-9); PROTEIN,URINE NEGATIVE (NEGATIVE); UROBILINOGEN,URINE NORMAL (NORMAL)
[2017-01-02 03:44] LABS: WBC,URINE RARE /HPF
[2017-01-02] MEDS: ANTACID SUSP 30 ML UDC (MYLANTA) PO ONE (04:08)
[2017-01-02] MEDS: LIDOCAINE 2% VISCOUS 15 ML UDC PO ONE (04:08)
[2017-01-02 04:21] LABS: hs C REACTIVE PROTEIN 0.19 MG/DL (0.00-0.50)
[2017-01-02] MEDS: fentaNYL INJECTION 100 MCG/2 ML AMP IVP ONE (04:39)
--- NOTE | 2017-01-02 04:43 | ED Abdominal Pain ---
General Chief Complaint: Abdominal/GI Problems Stated Complaint: ABDOMINAL PAIN,VOMITING Nursing Triage Note: Pt presents upper abd pain that started in evening. Reports severe epigastric pain and used lots of peppermint and Pepto-Bismol. Pt vomited in route. Sepsis Screen: No Definite Risk Source of Information: Patient Exam Limitations: No Limitations History of Present Illness Time Seen By Provider: 03:09 Initial Comments This 31-year-old woman presents to the emergency room with complaints of upper abdominal pain in the epigastric and right upper quadrant regions with associated vomiting 1. She states the pain as 4/10 and colicky in nature. She denies urinary symptoms. She has been treated for a left ureteral stone recently. She ate Norwegian food this evening around 17:00. She has been eating peppermints up to about 40 minutes ago. She took some Pepto-Bismol as well which did not help. The gallbladder was noted to be unremarkable on a CT scan performed in July. Allergies and Home Medications Allergies Coded Allergies: No Known Drug Allergies (Unverified , 07/17/16) Home Medications Famotidine 20 Mg Tablet, 20 MG PO BID, #30 Prescribed by: SARY POND on 01/02/17 0520 Omeprazole 20 Mg Capsule.dr, 20 MG PO BID, #30 Prescribed by: SARY POND on 01/02/17 0520 Review of Systems Constitutional: no symptoms reported EENTM: No Symptoms Reported Respiratory: No Symptoms Reported Cardiovascular: No Symptoms Reported Gastrointestinal: See HPI Genitourinary: No Symptoms Reported Musculoskeletal: no symptoms reported Skin: no symptoms reported Psychiatric/Neurological: No Symptoms Reported Endocrine: No Symptoms Reported Past Gkotkrl-Nqtnfd-Oypeih Hx Patient Social History Alcohol Use: Denies Use Recreational Drug Use: No Smoking Status: Never a Smoker Recent Foreign Travel: No Contact w/Someone Who Travel: No Recent Infectious Disease Expo: No Recent Hopitalizations: No Seasonal Allergies Seasonal Allergies: Yes (MILD) Surgeries History of Surgeries: Yes (WISDOM TEETH, CYST FROM WRIST, SEPTOPLASTY, ESWL) Surgeries: Renal (Kidney stone retrieval/ESWL) Respiratory History of Respiratory Disorde: No Cardiovascular History of Cardiac Disorders: No Neurological History of Neurological Disord: No Reproductive System : No Hx Reproductive Disorders: No Sexually Transmitted Disease: No HIV/AIDS: No Female Reproductive Disorders: Denies Genitourinary History of Genitourinary Disor: Yes Genitourinary Disorders: Kidney Stones Gastrointestinal History of Gastrointestinal Di: No Musculoskeletal History of Musculoskeletal Dis: No Endocrine History of Endocrine Disorders: No HEENT History of HEENT Disorders: No Loss of Vision: Denies Hearing Impairment: Denies Cancer History of Cancer: No Psychosocial History of Psychiatric Problem: No Integumentary History of Skin or Integumenta: No Blood Transfusions History of Blood Disorders: No Adverse Reaction to a Blood Tr: No (N/A) Physical Exam Vital Signs VS - Last 72 Hours, by Label 01/02/17 01/02/17 02:58 05:35 Temp 97.1 97.1 Pulse 87 87 Resp 20 20 B/P (MAP) 151/95 Pulse Ox 99 99 O2 Delivery Room Air Capillary Refill : Less Than 3 Seconds General Appearance: WD/WN, mild distress HEENT: PERRL/EOMI, normal ENT inspection, pharynx normal Respiratory: lungs clear, normal breath sounds, no respiratory distress, no accessory muscle use Cardiovascular: regular rate, rhythm, no edema, no murmur Gastrointestinal: normal bowel sounds, soft, tenderness (Epigastrium and right upper quadrant with positive Castro sign) Extremities: normal inspection, no pedal edema Back: normal inspection, CVA tenderness (R) Neurologic/Psychiatric: 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, no motor/sensory deficits, alert, normal mood/affect, oriented x 3 Skin: normal color, warm/dry Progress/Results/Core Measures Results/Orders Lab Results Laboratory Tests Test 01/02/17 03:00 01/02/17 03:25 Range/Units White Blood Count 11.3 H 4.3-11.0 10^3/uL Red Blood Count 4.51 4.35-5.85 10^6/uL Hemoglobin 12.7 11.5-16.0 G/DL Hematocrit 38 35-52 % Mean Corpuscular Volume 83 80-99 FL Mean Corpuscular Hemoglobin 28 25-34 PG Mean Corpuscular Hemoglobin Concent 34 32-36 G/DL Red Cell Distribution Width 12.5 10.0-14.5 % Platelet Count 296 130-400 10^3/uL Mean Platelet Volume 10.7 H 7.4-10.4 FL Neutrophils (%) (Auto) 65 42-75 % Lymphocytes (%) (Auto) 27 12-44 % Monocytes (%) (Auto) 7 0-12 % Eosinophils (%) (Auto) 1 0-10 % Basophils (%) (Auto) 0 0-10 % Neutrophils # (Auto) 7.4 1.8-7.8 X 10^3 Lymphocytes # (Auto) 3.0 1.0-4.0 X 10^3 Monocytes # (Auto) 0.8 0.0-1.0 X 10^3 Eosinophils # (Auto) 0.1 0.0-0.3 10^3/uL Basophils # (Auto) 0.0 0.0-0.1 10^3/uL Sodium Level 139 135-145 MMOL/L Potassium Level 3.9 3.6-5.0 MMOL/L Chloride Level 107 98-107 MMOL/L Carbon Dioxide Level 23 21-32 MMOL/L Anion Gap 9 5-14 MMOL/L Blood Urea Nitrogen 20 H 7-18 MG/DL Creatinine 0.83 0.60-1.30 MG/DL Estimat Glomerular Filtration Rate > 60 BUN/Creatinine Ratio 24 Glucose Level 101 70-105 MG/DL Calcium Level 9.1 8.5-10.1 MG/DL Total Bilirubin 0.2 0.1-1.0 MG/DL Aspartate Amino Transf (AST/SGOT) 23 5-34 U/L Alanine Aminotransferase (ALT/SGPT) 22 0-55 U/L Alkaline Phosphatase 72 40-136 U/L C-Reactive Protein High Sensitivity 0.19 0.00-0.50 MG/DL Total Protein 6.7 6.4-8.2 GM/DL Albumin 4.1 3.2-4.5 GM/DL Lipase 13 8-78 U/L Serum Test, Qualitative NEGATIVE NEGATIVE Urine Color YELLOW Urine Clarity CLEAR Urine pH 6.5 5-9 Urine Specific [place] 1.020 1.016-1.022 Urine Protein NEGATIVE NEGATIVE Urine Glucose (UA) NEGATIVE NEGATIVE Urine Ketones NEGATIVE NEGATIVE Urine Nitrite NEGATIVE NEGATIVE Urine Bilirubin NEGATIVE NEGATIVE Urine Urobilinogen NORMAL NORMAL MG/DL Urine Leukocyte Esterase 2+ H NEGATIVE Urine RBC (Auto) NEGATIVE NEGATIVE Urine RBC NONE /HPF Urine WBC RARE /HPF Urine Squamous Epithelial Cells 5-10 /HPF Urine Crystals NONE /LPF Urine Bacteria NEGATIVE /HPF Urine Casts NONE /LPF Urine Mucus NEGATIVE /LPF Urine Culture Indicated NO My Orders Orders - SARY LOPEZ MD Cbc With Automated Diff (01/02/17 03:08) Comprehensive Metabolic Panel (01/02/17 03:08) Hcg,Qualitative Serum (01/02/17 03:08) Lipase (01/02/17 03:08) Ua Culture If Indicated (01/02/17 03:08) Saline Lock/Iv-Start (01/02/17 03:08) Ondansetron Injection (Zofran Injectio (01/02/17 03:15) Famotidine Injection (Pepcid Injection) (01/02/17 03:15) Lidocaine 2% Viscous 15 Ml (Xylocaine Vi (01/02/17 03:45) Antacid Suspension (Mylanta Suspension (01/02/17 03:45) Hs C Reactive Protein (01/02/17 03:59) Lipase (01/02/17 03:59) Fentanyl Injection (Sublimaze Injection (01/02/17 04:30) Rx-Ondansetron Po (Rx-Zofran Po) (01/02/17 05:16) Medications Given in ED Vital Signs/I&O Vital Sign - Last 12Hours 01/02/17 01/02/17 02:58 05:35 Temp 97.1 97.1 Pulse 87 87 Resp 20 20 B/P (MAP) 151/95 Pulse Ox 99 99 O2 Delivery Room Air Blood Pressure Mean: 113 Progress Note : Progress Note Pepcid and Zofran were given which improved nausea but not pain. GI cocktail was then administered which modestly improved pain. Pain was then treated with fentanyl. I discussed options with the patient including proceeding with a CT scan in the emergency room versus pursuing an outpatient ultrasound with her primary care provider. Because she had been eating mints and Pepto-Bismol, there were concerns about obtaining a quality ultrasound study in the emergency department. Patient elected for observation at home with plan to pursue an outpatient ultrasound when NPO. Departure Impression Impression: Primary Impression: Epigastric pain Additional Impressions: Right upper quadrant pain Nausea and vomiting Qualified Codes: R11.2 - Nausea with vomiting, unspecified Disposition: 01 HOME, SELF-CARE Condition: Improved Departure-Patient Inst. Decision time for Depature: 05:16 Referrals: ELVIA ALCALA MD (PCP/Family) Primary Care Physician Patient Instructions: Acute Abdomen (Belly Pain), Adult (DC), Gastritis (DC) Add. Discharge Instructions: The exact cause of your abdominal pain is uncertain but could be related to gastritis and/or gallbladder disease. Use omeprazole and Pepcid as combination antacid therapy. Use of Zofran (ondansetron) dissolved under the tongue every 4 hours as needed for nausea and vomiting. Drink plenty of clear liquids. Start with a clear liquid diet and gradually advance your diet as tolerated. Avoid the following: Eating large meals, eating close to bedtime, fatty or greasy foods, oily foods such as salad dressing, spicy foods, carbonation, caffeine, chocolate, mints, alcohol, tobacco products, tomato products, citrus fruits and juices, or anything else you know irritates your stomach. Follow-up with your primary care provider soon as possible. Discussed ordering a gallbladder ultrasound study. Return to emergency room if symptoms worsen. All discharge instructions reviewed with patient and/or family. Voiced understanding. Scripts Omeprazole (Omeprazole) 20 Mg Capsule.dr 20 MG PO BID, #30 CAP Prov: SAYR LOPEZ MD 01/02/17 Famotidine (Pepcid) 20 Mg Tablet 20 MG PO BID, #30 TAB Prov: SARY LOPEZ MD 01/02/17 Copy Copies To 1: ELVIA ALCALA MD, JOSHUA T MD Jan 02, 2017 4:43 am
[2017-01-02] MEDS ORDERED: FAMO-119 PO (05:20)
[2017-01-02] MEDS ORDERED: OMEP20CA12 PO (05:20)
[2017-01-02] MEDS: RX-ONDANSETRON 4 MG ODT (ZOFRAN) PPK #4 SL STA (05:32)
[2017-01-02 05:35] VITALS: BP 151/95
== END 2017-01-02 05:35 | disposition home or self-care (01) ==
LOC: EDUNIT# 02:31 → ER 02:32
DX: R10.13 Epigastric pain (principal); R10.11 Right upper quadrant pain; R11.2 Nausea with vomiting, unspecified; Z87.442 Personal history of urinary calculi; Z98.890 Other specified postprocedural states
CPT/HCPCS: 36415; 80053; 81000; 83690; 84703; 85025; 86141

== ENCOUNTER 2017-04-04 14:02 | Emergency (ER) | payer OTHER, BC ==
[~2017-04-04] VITALS: Ht 172.7 cm; Wt 75.7 kg
[~2017-04-04 14:02] MED LIST changes: +FAMO-119 PO; +OMEP20CA12 PO
[2017-04-04] MEDS ORDERED: KETOROLAC 30 MG/ML VIAL IVP ONE (14:30)
[2017-04-04] MEDS ORDERED: KETOROLAC 30 MG/ML VIAL IM STA (14:31)
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
[2017-04-04] MEDS ORDERED: CYCL10TA9 PO (15:33)
[2017-04-04 15:37] VITALS: BP 142/100
== END 2017-04-04 15:37 | disposition home or self-care (01) ==
LOC: EDUNIT# 14:02 → ER 14:02
DX: M54.2 Cervicalgia (principal); R51 Headache; Z32.02 Encounter for pregnancy test, result negative; Z87.442 Personal history of urinary calculi; V43.52XA Car driver injured in collision with other type car in traffic accident, initial encounter; Y92.410 Unspecified street and highway as the place of occurrence of the external cause
CPT/HCPCS: 84703; 99284

== ENCOUNTER → 2018-12-27 | Outpatient (CLI) | payer BC ==
[~2018-12-27] MED LIST changes: +CYCL10TA9 PO; +HYDR-4226 PO; -HYDR-757 PO; -OMEP20CA12 PO; +OMEP20CA13 PO
--- NOTE | 2018-12-27 13:28 | Diagnostic Imaging Report ---
PROCEDURE: US Gallbladder. TECHNIQUE: Multiple real-time grayscale images were obtained over the right upper quadrant in various projections. INDICATION: Right upper quadrant pain. FINDINGS: Liver is normal in size at 14.4 cm. No discrete liver mass is identified. Gallbladder is without stones or sludge. No wall thickening or biliary ductal dilatation is seen. The pancreas is unremarkable. Right kidney is without calculi or hydronephrosis. There is no ascites. IMPRESSION: Unremarkable gallbladder ultrasound. Dictated by: Dictated on workstation # [id number]
== END ==
LOC: RAD 12:34
PROVIDERS: ATTEND Physician Assistant
DX: R10.11 Right upper quadrant pain (principal)
CPT/HCPCS: 76705

== ENCOUNTER → 2020-03-29 | Outpatient (CLI) | payer BC ==
[~2020-03-29] MED LIST changes: -OMEP20CA13 PO; +OMEP20CA18 PO; -TAMS0.4C98 PO; +TMSL.4C PO
== END ==
LOC: LABNPT 06:27
PROVIDERS: ATTEND Internal Medicine
DX: Z20.828 Contact with and (suspected) exposure to other viral communicable diseases (principal)
CPT/HCPCS: 87635